=== PATIENT | male | born 1975 | race Two or more races ===

== ENCOUNTER → 2019-10-09 | Outpatient (CLI) | payer MEDICAID, OTHER | END | disposition home or self-care (01) | LOC: Rad HDHVI 14:59 | PROVIDERS: ATTEND Internal Medicine | DX: I07.1 Rheumatic tricuspid insufficiency (principal); I49.9 Cardiac arrhythmia, unspecified; R00.2 Palpitations; R07.9 Chest pain, unspecified | CPT/HCPCS: 93306 ==

== ENCOUNTER 2025-04-23 21:39 | Inpatient (IN) | payer MEDICAID ==
[~2025-04-23] VITALS: Ht 182.9 cm; Wt 110.2 kg
[2025-04-23 22:53] LABS: Hematocrit 41.5 % (41.0-53.0); Hemoglobin 13.7 g/dL (13.5-17.5); Mean Corpuscular Hemoglobin 29.0 pg (28.0-32.0); Mean Corpuscular Volume 87.6 fL (80.0-100.0); Nucleated Red Blood Cells % 0.1 %
--- NOTE | 2025-04-23 23:01 | DVH ---
CHEST RADIOGRAPH Indication: Suspected Sepsis Technique: Single frontal view of the chest was obtained Comparison: None FINDINGS: Lines and Tubes: None Lungs: No focal consolidation. Pleura: No effusion. No pneumothorax. Cardiomediastinal contours: Unremarkable Bones: No acute osseous abnormality. IMPRESSION: 1. No acute cardiopulmonary disease.
[2025-04-23 23:13] LABS: Alanine Aminotransferase 30 U/L (7-40); Albumin 4.5 g/dL (3.2-4.8); Alkaline Phosphatase 96 U/L (46-116); Anion Gap 10 (5-15); BUN/Creatinine Ratio 13.5 (10.0-20.0); Bilirubin, Total 0.5 mg/dL (0.2-1.0); Blood Urea Nitrogen 12 mg/dL (9-23); Calcium 9.8 mg/dL (8.7-10.4); Carbon Dioxide 25 mmol/L (20-31); Chloride 103 mmol/L (98-107); Glucose 203 mg/dL (74-106); Potassium 3.8 mmol/L (3.5-5.1); Sodium 138 mmol/L (136-145); Total Protein 6.9 g/dL (5.7-8.2)
[2025-04-24] VITALS (9 sets, daily range): BP systolic 114–140; BP diastolic 78–93; PULSE 81–93; RESP 12–18; TEMP 98.6–100.2; O2SAT 94–98
--- NOTE | 2025-04-24 01:31 | ED.PDOC ---
History of Present Illness HPI Comments 49-year-old male is brought in by ambulance from private residence for chief complaint of flu-like symptoms. Significant history of fibromyalgia, GERD, HTN, seizures, unspecified 'brain infection' in 2012. Per EMS report, symptoms include: Sternal chest, right back, RLQ, and kidney pain, generalized weakness, headache, room spinning dizziness, nausea, vomiting, fever, hot flashes, and chills. Symptoms are reported to have been ongoing following initial, unprovoked onset 4 days ago. Patient also mentions on having a tonic-clonic seizure episode at 0530, this morning, that was witnessed by his (last seizure was 1 year ago; he is on current seizure medications). He reports recen t trip to [place], [place]. On scene, vitals were noted to have been stable and within normal limits, with the exception of the patient being febrile, hypertensive, and tachycardic at a rate of 102. He had initial blood glucose of 234. Patient denies having any shortness of breath, urinary symptoms, bloody or bilious vomitus, diarrhea, further associated symptoms. Chief Complaint: General Weakness Time Seen by MD: 21:45 Reviewed Notes: Nurses Notes, Apprentice Instrument Technician Notes, Medications, Allergies Allergies: Coded Allergies: NO KNOWN ALLERGIES (Unverified , 04/23/25) Home Meds Reported Medications Metoprolol Succinate (Metoprolol Succinate Er) 25 Mg Tab, 1 TAB PO BID 04/24/25 Magnesium Oxide (Mag-Ox) 400 Mg Tb, 1 TAB PO 04/24/25 Pregabalin (Pregabalin) 200 Mg Cap, 1 CAP PO TID 04/24/25 Enalapril Maleate (Enalapril Maleate) 20 Mg Tab, 1 TAB PO BID 04/24/25 Information Source: Patient, Emergency Med Personnel Mode of Arrival: EMS Severity: Moderate Timing: Days Duration: Since onset Prehospital treatment: None Review of Systems: REVIEW OF SYSTEMS: Fever, hot flashes, chills or fatigue HEENT: No sore throat, no earache, no congestion, no neck pain. Cardiac: chest pain. No palpitations. Lungs: No shortness of breath, no cough. GI: RLQ abdominal pain. Nausea and vomiting, no diarrhea, no constipation : Kidney pain. No dysuria, frequency, or urgency. No hematuria. Musculoskeletal: Right back pain. No joint pain , no joint swelling, no extr emity edema. Skin: No rash, no itching. Neuro: Generalized weakness. headache, dizziness Vital Signs Vital Signs Date Time Temp Pulse Resp B/P (MAP) Pulse Ox O2 Delivery O2 Flow Rate FiO2 04/24/25 01:23 100 04/23/25 22:09 100.0 18 138/66 (90) 95 100.0 Physical Exam General: Awake, alert and oriented. No acute distress. Skin: Skin in warm and intact but diaphoretic. Appropriate color for ethnicity. HEENT: The head is normocephalic and atraumatic. Conjunctivae are clear without exudates or hemorrhage. Sclera is non-icteric. EOM are intact. No signs of nystagmus. Eyelids are normal in appearance without swelling or lesions. Oral mucosa is pink and moist. Neck is supple but was able to touch his chest with his chin. Neck: The neck is supple with normal range of motion. No JVD. Cardiac: Heart rate and rhythm are normal. No murmurs, gallops, or rubs are auscultated. Respiratory: No signs of respiratory distress. Lung sounds are clear in all lobes bilaterally without rales, rhonchi, or wheezes. Abdominal: RLQ in right flank tenderness. Otherwise, remaining abdomen is soft, non-tender without distention, guarding or rigidity. Bowel sounds are present and normoactive in all four quadrants. Extremities: Upper and lower extremities are atraumatic in appearance without deformity or edema. Neurological: The patient is awake, alert and oriented to person, place, and time with normal speech. Speech is clear. There is no facial asymmetry. Psychiatric: Appropriate mood and affect. Good judgement and insight. Past Medical History PAST MEDICAL HISTORY: GERD, HTN, Seizures Past Medical History (Other): Fibromyalgia Sepsis Unspecified 'brain infection' in 2013 Surgical History: Denies all surgeries Family History Family History: Unknown Social History Smoker: Non-Smoker Alcohol: Denies ETOH Use Drugs: Denies Drug Use Lives In: Home Was a procedure done? Was a procedure done?: No EKG EKG : Pulse Rate (adult): 100 [place]: Normal Cardiac Rhythm: ST Block: None Hypertrophy: None ST: Normal Differential Dx Considerations may include: Viral illness, pharyngitis, otitis media, bacteremia, pneumonia, UTI, meningitis, sepsis, acute ischemic coronary syndrome, aortic dissection, cardiac tamponade, mediastinitis, pulmonary embolus, pneumothorax, tension pneumothorax, esophageal rupture, coronary artery vasospasm, myocarditis, pericarditis, pneumonia, pulmonary edema, esophageal tear, pancreatitis, aortic stenosis, dilated cardiomyopathy, hypertrophic cardiomyopathy, mitral valve prolapse, malignancy, pleuritis, pneumomediastinum, primary pulmonary hypertension, cholecystitis, esophageal spasm, esophagus, gastritis, GERD, peptic ulcer disease, costochondritis, fibromyalgia, rib fracture, herpes zoster, radicular syndromes, thoracic outlet syndrome, somatization. X-Ray, Labs, Meds, VS Vital Signs Date Time Temp Pulse Resp B/P (MAP) Pulse Ox O2 Delivery O2 Flow Rate FiO2 04/24/25 01:23 100 04/23/25 22:09 100.0 103 18 138/66 (90) 95 100.0 Lab Test 04/24/25 01:40 04/24/25 01:32 04/23/25 23:45 04/23/25 22:19 Range/Units Troponin I High Sensitivity Pending < 3 L < 3 L </=54 ng/L Influenza Type A Antigen Pending Influenza Type B Antigen Pending SARS-CoV-2 Antigen (Rapid) Pending White Blood Count 7.3 4.4-10.8 10^3/uL Red Blood Count 4.74 4.5-5.90 10^6/uL Hemoglobin 13.7 13.5-17.5 g/dL Hematocrit 41.5 41.0-53.0 % Mean Corpuscular Volume 87.6 80.0-100.0 fL Mean Corpuscular Hemoglobin 29.0 28.0-32.0 pg Mean Corpuscular Hemoglobin Concent 33.0 32.0-36.0 g/dL Red Cell Distribution Width 14.2 11.8-14.3 % Platelet Count 159 140-450 10^3/uL Mean Platelet Volume 7.9 6.9-10.8 fL Neutrophils (%) (Auto) 76.0 37.0-80.0 % Lymphocytes (%) (Auto) 11.8 10.0-50.0 % Monocytes (%) (Auto) 10.9 0.0-12.0 % Eosinophils (%) (Auto) 0.6 0.0-7.0 % Basophils (%) (Auto) 0.7 0.0-2.0 % Neutrophils # (Auto) 5.5 1.6-8.6 10 ^3/uL Lymphocytes # (Auto) 0.9 0.4-5.4 10 ^3/uL Monocytes # (Auto) 0.8 0-1.3 10 ^3/uL Eosinophils # (Auto) 0 0-0.8 10 ^3/uL Basophils # (Auto) 0 0-0.2 10 ^3/uL Nucleated Red Blood Cells 0.1 % Sodium Level 138 136-145 mmol/L Potassium Level 3.8 3.5-5.1 mmol/L Chloride Level 103 98-107 mmol/L Carbon Dioxide Level 25 20-31 mmol/L Anion Gap 10 5-15 Blood Urea Nitrogen 12 9-23 mg/dL Creatinine 0.89 0.700-1.30 mg/dL Glomerular Filtration Rate Calc 104 >90 mL/min BUN/Creatinine Ratio 13.5 10.0-20.0 Serum Glucose 203 H 74-106 mg/dL Lactic Acid Level 1.9 0.4-2.0 mmol/L Calcium Level 9.8 8.7-10.4 mg/dL Total Bilirubin 0.5 0.2-1.0 mg/dL Aspartate Amino Transferase (AST) 26 13-40 U/L Alanine Aminotransferase (ALT) 30 7-40 U/L Alkaline Phosphatase 96 46-116 U/L Total Protein 6.9 5.7-8.2 g/dL Albumin 4.5 3.2-4.8 g/dL Plasma/Serum Blood Alcohol 3.7 <10 mg/dL Test 04/23/25 21:50 Range/Units Urine Color Yellow Yellow Urine Clarity Clear Clear Urine pH 6.0 5.0-9.0 Urine Specific [place] 1.049 H 1.001-1.035 Urine Protein 1+ H Negative Urine Ketones Trace Negative Urine Blood Negative Negative /uL Urine Nitrite Negative Negative Urine Bilirubin Negative Negative Urine Urobilinogen Normal Negative mg/dL Urine Leukocyte Esterase Negative Negative /uL Urine RBC 2 0 - 3 /hpf Urine Microscopic WBC 1 0-3 /HPF Urine Squamous Epithelial Cells None seen <5 /hpf Urine Bacteria None seen None Seen /hpf Urine Mucus Few None Seen Urine Glucose 3+ H Normal mg/dL [facility] [address] [facility] [address] Ph: [phone] DIAGNOSTIC IMAGING Diagnostic Imaging Report : [id number] Signed PATIENT: MARY GERARDO ACCT: [id number] UNIT: [id number] : 1975 LOC: ER ROOM / BED: / AGE / SEX: 49 / M ADM STATUS: REG ER SERVICE 49 ORDERING PHYSICIAN: STANTON BORGES MD PROCEDURE(s): CXR1 - CHEST XRAY 1 VIEW REASON: Suspected Sepsis ORDER NUMBER(s): [id number], ACCESSION NUMBER(s): [id number] CHEST RADIOGRAPH Indication: Suspected Sepsis Technique: Single frontal view of the chest was obtained Comparison: None FINDINGS: Lines and Tubes: None Lungs: No focal consolidation. Pleura: No effusion. No pneumothorax. Cardiomediastinal contours: Unremarkable Bones: No acute osseous abnormality. IMPRESSION: 1. No acute cardiopulmonary disease. ATED BY: CHRISTY NGUYEN MD DICTATED DATE/TIME: 04/23/252258 SIGNED BY: CHRISTY NGUYEN MD SIGNED DATE/TIME: 04/23/252258 CC: Time of 1ST Reevaluation: 22:15 Reevaluation 1ST: Unchanged Patient Education/Counseling: Treatment, Need For Follow Up Family Education/Counseling: No Family Present SEPSIS Sepsis Screen Date sepsis recognized/suspect: Apr 23, 2025 Time Sepsis recognized/suspect: 2210 Recent Procedure: No On Antibiotic Therapy: No Respiratory Rate >20: No Heart Rate >90: Yes Temp<36 C (96.8 F) or >38.3 C: No SBP <90 or MAP <65 mmHG: No New Acute Mental Status Change: No Is the patient on CPAP, BIPAP,: No Physician Orders Chest Xray 1 View (04/23/25 21:50) Blood Culture (04/23/25 21:50) Urine Bacterial Culture (04/23/25 21:50) Seizure Precautions (04/23/25 ) Troponin-I Hs (04/24/25 00:50) Electrocardigram (04/23/25 21:50) Electrocardigram (04/23/25 22:50) Electrocardigram (04/24/25 00:50) Drug Screen (04/23/25 21:50) Notify Md If Abnormal Vs (04/23/25 22:01) Vital Signs UPONDC (04/24/25 23:36) Notify Md If Abnormal Vs (04/24/25 00:55) Covid19 Antigen Leilani (04/24/25 ) Rapid Influenza A&B (04/24/25 01:27) Vital Signs Date Time Temp Pulse Resp B/P (MAP) Pulse Ox O2 Delivery O2 Flow Rate FiO2 04/24/25 01:23 100 04/23/25 22:09 100.0 103 18 138/66 (90) 95 100.0 Laboratory Tests Test 04/23/25 22:19 Lactic Acid Level 1.9 mmol/L (0.4-2.0) White Blood Count 7.3 10^3/uL (4.4-10.8) Departure 1 Departure Time of Disposition: 01:31 Impression: Primary Impression: Dizziness Additional Impressions: Seizure Generalized weakness Hyperglycemia COVID-19 Disposition: ADMITTED INPATIENT Condition: Stable Comments Patient admitted to hospitalist service for further treatment, evaluation and monitoring. Extensive evaluation was performed in attempt to identify or rule out: (See differential diagnosis section) The following tests were ordered, and results were reviewed by me and discussed with patient: (See diagnostic results section) The following test were independently interpreted by me: EKG I reviewed and agreed with the following test results read by other providers: Chest x-ray I reviewed the following notes from the pt's past medical encounters: N/A Additional information was gathered from interviewing the following independent historians: EMS personnel Discussion of management or test interpretation with external physician/other qualified health post acute care nurse: N/A Decision regarding hospitalization or escalation of hospital level of care: Risk and benefits of admission for further treatment of patient's condition was considered. Due to patient's current clinical condition, high risk of decline and poor outcome if discharged and need for further inpatient management and monitoring, patient will be admitted to the hospital. Critical Care Note Critical Care Time?: No Stability Stability form required: No Heart Score Heart Score: Heart Score Response (Comments) Value History N/A 0 EKG N/A 0 Age N/A 0 Risk Factors N/A 0 Troponin N/A 0 Total 0 I personally scribed for STANTON BORGES MD ([email or web address]) on 04/24/25 at 01:31. Electronically submitted by Roque Plaza ([email or web address]). I personally scribed for STANTON BORGES MD ([email or web address]) on 04/24/25 at 01:57. Electronically submitted by Roque Plaza ([email or web address]). STANTON BORGES MD Apr 24, 2025 01:31
[2025-04-24 01:43] LABS: Urine Protein, UAD 1+ (Negative)
[2025-04-24 02:47] LABS: COVID19 ANTIGEN SOFIA FIA POSITIVE (NEGATIVE)
[2025-04-24] MEDS ORDERED: ALBUTEROL SULF HFA 90MCG INH 200DOSE IN PRN ×2 (04:30→04:45)
[2025-04-24] MEDS ORDERED: ONDANSETRON HCL 4 MG/2 ML VIAL IV PRN (04:30)
[2025-04-24] MEDS ORDERED: guaiFENesin-DM 100/10mg/5ml SYR PO PRN ×2 (04:30→04:45)
[2025-04-24] MEDS ORDERED: ACETAMINOPHEN 500 MG TAB or CAP PO PRN ×2 (04:30→04:45)
[2025-04-24] MEDS ORDERED: LORazepam 2MG/ML-1ML VIAL IV PRN ×2 (04:30→04:45)
[2025-04-24] MEDS ORDERED: SODIUM CHLORIDE 0.9% 500 ML IV ONE (04:30)
--- NOTE | 2025-04-24 04:33 | DVHHP2 ---
History of Present Illness Reason for Visit: Flu-like symptoms History of Present Illness 49-year-old male presents for evaluation of flu-like symptoms. Patient reports a four day history of generalized weakness with associated headache, fever, nausea. He also reports having a tonic-clonic seizure yesterday morning. Denies head trauma or oral trauma. Patient reports being compliant with his antiseizure medications. No other acute complaints reported. Past Medical History Fibromyalgia, hypertension, seizures, diabetes mellitus Family History Noncontributory Smoke: No ALCOHOL: none Drugs: None Lives: with Family Review of Systems Review of Systems Review of systems are currently negative otherwise addressed in HPI. Allergies: Coded Allergies: NO KNOWN ALLERGIES (Unverified , 04/23/25) Exam Vital Signs Vital Signs Date Time Temp Pulse Resp B/P (MAP) Pulse Ox O2 Delivery O2 Flow Rate FiO2 04/24/25 04:00 93 04/24/25 02:09 98.6 14 138/83 (101) 96 98.6 Exam Gen: 49-year-old male in mild distress. Skin: Warm, dry, normal color and texture, no rash. HEENT: Normocephalic atraumatic, mucous membranes moist and pink. Neck: Cervical and supraclavicular nodes normal without enlargement, trachea is midline, thyroid gland is normal without masses. Pulmonary: Clear to auscultation and percussion bilaterally. Cardiac: Regular rate and rhythm. No murmur Abdomen: Soft, nontender, nondistended, bowel sounds present all 4 quadrants, no guarding, no rigidity, no organomegaly. Extremities: No cyanosis, clubbing, no edema Neuro: Cranial nerves II through XII grossly intact, normal affect and speech, no focal motor deficits. Labs/Xrays ORDERING PHYSICIAN: STANTON BORGES MD PROCEDURE(s): CXR1 - CHEST XRAY 1 VIEW REASON: Suspected Sepsis ORDER NUMBER(s): [id number], ACCESSION NUMBER(s): [id number] CHEST RADIOGRAPH Indication: Suspected Sepsis Technique: Single frontal view of the chest was obtained Comparison: None FINDINGS: Lines and Tubes: None Lungs: No focal consolidation. Pleura: No effusion. No pneumothorax. Cardiomediastinal contours: Unremarkable Bones: No acute osseous abnormality. IMPRESSION: 1. No acute cardiopulmonary disease. Labs Test 04/24/25 01:40 04/24/25 01:32 04/23/25 22:19 04/23/25 21:50 Range/Units Troponin I High Sensitivity < 3 L </=54 ng/L Influenza Type A Antigen Negative Negative Influenza Type B Antigen Negative Negative SARS-CoV-2 Antigen (Rapid) Positive *A NEGATIVE White Blood Count 7.3 4.4-10.8 10^3/uL Red Blood Count 4.74 4.5-5.90 10^6/uL Hemoglobin 13.7 13.5-17.5 g/dL Hematocrit 41.5 41.0-53.0 % Mean Corpuscular Volume 87.6 80.0-100.0 fL Mean Corpuscular Hemoglobin 29.0 28.0-32.0 pg Mean Corpuscular Hemoglobin Concent 33.0 32.0-36.0 g/dL Red Cell Distribution Width 14.2 11.8-14.3 % Platelet Count 159 140-450 10^3/uL Mean Platelet Volume 7.9 6.9-10.8 fL Neutrophils (%) (Auto) 76.0 37.0-80.0 % Lymphocytes (%) (Auto) 11.8 10.0-50.0 % Monocytes (%) (Auto) 10.9 0.0-12.0 % Eosinophils (%) (Auto) 0.6 0.0-7.0 % Basophils (%) (Auto) 0.7 0.0-2.0 % Neutrophils # (Auto) 5.5 1.6-8.6 10 ^3/uL Lymphocytes # (Auto) 0.9 0.4-5.4 10 ^3/uL Monocytes # (Auto) 0.8 0-1.3 10 ^3/uL Eosinophils # (Auto) 0 0-0.8 10 ^3/uL Basophils # (Auto) 0 0-0.2 10 ^3/uL Nucleated Red Blood Cells 0.1 % Sodium Level 138 136-145 mmol/L Potassium Level 3.8 3.5-5.1 mmol/L Chloride Level 103 98-107 mmol/L Carbon Dioxide Level 25 20-31 mmol/L Anion Gap 10 5-15 Blood Urea Nitrogen 12 9-23 mg/dL Creatinine 0.89 0.700-1.30 mg/dL Glomerular Filtration Rate Calc 104 >90 mL/min BUN/Creatinine Ratio 13.5 10.0-20.0 Serum Glucose 203 H 74-106 mg/dL Lactic Acid Level 1.9 0.4-2.0 mmol/L Calcium Level 9.8 8.7-10.4 mg/dL Total Bilirubin 0.5 0.2-1.0 mg/dL Aspartate Amino Transferase (AST) 26 13-40 U/L Alanine Aminotransferase (ALT) 30 7-40 U/L Alkaline Phosphatase 96 46-116 U/L Total Protein 6.9 5.7-8.2 g/dL Albumin 4.5 3.2-4.8 g/dL Plasma/Serum Blood Alcohol 3.7 <10 mg/dL Urine Color Yellow Yellow Urine Clarity Clear Clear Urine pH 6.0 5.0-9.0 Urine Specific [place] 1.049 H 1.001-1.035 Urine Protein 1+ H Negative Urine Ketones Trace Negative Urine Blood Negative Negative /uL Urine Nitrite Negative Negative Urine Bilirubin Negative Negative Urine Urobilinogen Normal Negative mg/dL Urine Leukocyte Esterase Negative Negative /uL Urine RBC 2 0 - 3 /hpf Urine Microscopic WBC 1 0-3 /HPF Urine Squamous Epithelial Cells None seen <5 /hpf Urine Bacteria None seen None Seen /hpf Urine Mucus Few None Seen Urine Glucose 3+ H Normal mg/dL Assessment/Plan Assessment/Plan Assessment Viral syndrome COVID positive Seizure activity Hypertension Diabetes mellitus Plan Admit the patient to Med surge to the hospitalist COVID-19 protocol Resume home medications Continue treatment per orders. Plan discussed with: Patient My Orders Orders - GHADA JOHNSON AGACNP Procedure Category Date Status Time Isolation Order ORDERS 04/24/25 Transmitted 04:21 Precautions RIK 04/24/25 Transmitted (Contact,Droplets, 04:21 C-Reactive Protein LAB 04/24/25 Transmitted 04:21 D-Dimer LAB 04/24/25 Transmitted 04:21 Ferritin LAB 04/24/25 Transmitted 04:21 Thyroid Stimulating LAB 04/24/25 Transmitted Hormone 04:21 Complete Blood Count LAB 04/25/25 Verified 05:30 Comprehensive LAB 04/25/25 Verified Metabolic Panel 05:30 Complete Blood Count LAB 04/28/25 Verified 05:30 Comprehensive LAB 04/28/25 Verified Metabolic Panel 05:30 Lactate Dehydrogenase LAB 04/28/25 Verified 05:30 Ferritin LAB 04/28/25 Verified 05:30 Chest Portable XY 04/25/25 Logged 07:00 Chest Portable XY 04/28/25 Logged 07:00 Tylenol 1000 Mg PHA 04/24/25 Transmitted 04:30 Zinc 220 Mg Po Daily PHA 04/24/25 Transmitted 10:00 Albuterol Inh PHA 04/24/25 Transmitted (Covid-19) 90mcg 04:30 Oob To Chair RIK 04/24/25 Transmitted 04:21 Incentive Spirometry ORDERS 04/24/25 Transmitted Q 1hr 04:21 Magnesium LAB 04/24/25 Transmitted 04:21 Emergency Operator ORDERS 04/24/25 Transmitted 04:21 C-Reactive Protein LAB 04/28/25 Verified 04:21 Hemoglobin A1c LAB 04/24/25 Transmitted 04:21 Lovenox 40mg Daily PHA 04/24/25 Transmitted 10:00 Guaifenesin-Dextromet PHA 04/24/25 Transmitted Liquid (Robitussin 04:30 Enalapril Tablet PHA 04/24/25 Transmitted (Vasotec Tablet) 10:00 Metoprolol Xl PHA 04/24/25 Transmitted Succinate (Toprol Xl) 10:00 Pregabalin Capsule PHA 04/24/25 Transmitted (Lyrica Capsule) 10:00 Admit ADMIT 04/24/25 Transmitted 04:21 Ondansetron Hcl PHA 04/24/25 Transmitted (Zofran) 04:30 Cardiac DIET 04/24/25 Transmitted Diet-2gna,Lofat,Lochol Breakfast Condition: Stable [facility] 04/24/25 Transmitted 04:21 Bedrest With Bathroom RIK 04/24/25 Transmitted Privileg 04:21 Seizure Precautions [facility] 04/24/[address] 04:21 Lorazepam 2mg/Ml Inj PHA 04/24/25 Transmitted (Ativan Inj) 04:30 Date of Service: Apr 24, 2025 Billing Provider: GHADA JOHNSON Common Visit Codes: [id number] INP/OBS CARE (HIGH) GHADA JOHNSON Apr 24, 2025 04:33
[2025-04-24] MEDS ORDERED: DEXTROSE (50%) 50ML SYRG IV PRN (04:45)
[2025-04-24] MEDS: SODIUM CHLORIDE 0.9% 1,000 ML IV ONE (04:50)
[2025-04-24] MEDS: ACETAMINOPHEN 325 MG TAB PO ONE (04:50)
[2025-04-24] MEDS: SODIUM CHLORIDE 0.9% 500 ML IV ONE (04:51)
[2025-04-24 05:28] LABS: Opiate Scree,Urine Neg (NEGATIVE)
[2025-04-24 05:55] LABS: Phencyclidine Screen, Urine Neg (NEGATIVE)
[2025-04-24 05:56] LABS: Amphetamine Screen, Urine Neg (NEGATIVE); Barbiturate Scree,Urine Neg (NEGATIVE); Benzodiazephine Screen, Urine Neg (NEGATIVE); Cannabinoid Screen, Urine Neg (NEGATIVE); Cocaine Screen, Urine Neg (NEGATIVE)
[2025-04-24 06:35] LABS: Magnesium 1.9 mg/dL (1.6-2.6)
[2025-04-24] MEDS: ACCU-CHEK COMFORT CURVE STRIP VI SCH (06:36)
[2025-04-24] MEDS: InsuLIN REG 1unit/0.01ml Soln (100units/ml) SC SCH ×2 (06:37→11:59)
[2025-04-24] MEDS: InsuLIN REG 1unit/0.01ml Soln (100units/ml) ONE (06:38)
[2025-04-24] MEDS: PREGABALIN CAPSULE 75 MG CAP PO SCH (09:55)
[2025-04-24] MEDS: ZINC SULFATE 220mg CAP or TAB PO SCH (09:55)
[2025-04-24] MEDS: METOPROLOL SUCCINATE XL 50 MG TAB PO SCH (09:55)
[2025-04-24] MEDS: ENALAPRIL MALEATE 10 MG TAB PO SCH (09:56)
[2025-04-24] MEDS: ENOXAPARIN SOD 40 MG/0.4 ML SYRINGE SC SCH (09:56)
--- NOTE | 2025-04-24 09:57 | ECG ---
[facility] Test Date: 2025-04-24 Test Time: 01:23:08 Pat Name: MARY GERARDO Department: ED Room: 0202 Gender: M Force Variation Equipment Tender: FRANCESCA : 1975 Requested By: STANTON BORGES Order Number: [id number] Reading MD: Demarco White Measurements Intervals [place] Rate: 100 P: 66 NC: 124 QRS: 30 QRSD: 93 T: 13 QT: 331 QTc: 427 Interpretive Statements Sinus tachycardia Electronically Signed On 04-26-2025 18:59:57 PDT by Demarco White Please click the below link to view image of tracing.
[2025-04-24] MEDS ORDERED: ENALAPRIL MALEATE 10 MG TAB PO SCH (10:00)
[2025-04-24] MEDS ORDERED: ZINC SULFATE 220mg CAP or TAB PO SCH (10:00)
[2025-04-24] MEDS ORDERED: METOPROLOL SUCCINATE XL 50 MG TAB PO SCH (10:00)
[2025-04-24] MEDS ORDERED: PREGABALIN CAPSULE 75 MG CAP PO SCH (10:00)
[2025-04-24] MEDS ORDERED: ENOXAPARIN SOD 40 MG/0.4 ML SYRINGE SC SCH (10:00)
[2025-04-24] MEDS ORDERED: METO25TA93 PO (14:59)
[2025-04-24] MEDS ORDERED: PREG200C36 PO (14:59)
[2025-04-24] MEDS ORDERED: MAGN241.4 PO (14:59)
[2025-04-24] MEDS ORDERED: ENAL1TAB48 PO (14:59)
--- NOTE | 2025-04-24 15:50 | DVHPN2 ---
Subjective Patient continues to report having 10/10 headache Reviewed: Care Plan, H&P, Labs, Medications, Previous Orders Changes from previous H/P or p: No Changes General: Per HPI Objective Vitals Vital Signs Date Time Temp Pulse Resp B/P (MAP) Pulse Ox O2 Delivery O2 Flow Rate FiO2 04/24/25 14:32 98.6 82 18 140/89 (106) 98 98.6 04/24/25 07:59 Room Air* 0 21 Intake/Output Intake and Output 04/24/25 07:00 Intake Total 1000 ml Balance 1000 ml Intake IV Total 1000 ml General Appearance: Alert, Oriented X3, Cooperative, mild distress HEENT: Atraumatic, PERRLA Cardiovascular: Normal S1, Normal S2 Abdomen: Normal bowel sounds, Soft, No tenderness, No hepatospenomegaly, No masses Genitourinary: No Apparent Abnormalities Musculoskeletal: Normal sensory function, Normal motor function Skin: Dry, Intact Psych/Mental Status: Mental status NL, Mood NL Medications Current Medications Medications Dose Ordered Sig/Pastora Route Start Time Stop Time Status Last Admin Dose Admin Diagnostic Test (Pha) 1 strip ACHS 04/24/25 07:00 04/24/25 11:42 1 STRIP Dextrose 50 ml UD PRN IV 04/24/25 04:45 Albuterol 90 mcg TIDPRN PRN IN 04/24/25 04:45 Enoxaparin Sodium 40 mg DAILY SC 04/24/25 10:00 04/24/25 09:56 40 MG Ondansetron HCl 4 mg Q4HP PRN IV 04/24/25 04:45 Lorazepam 1 mg Q5MINP PRN IV 04/24/25 04:45 Acetaminophen 1,000 mg Q8HP PRN PO 04/24/25 04:45 Zinc Sulfate 220 mg DAILY PO 04/24/25 10:00 04/24/25 09:55 220 MG Guaifenesin/ Dextromethorphan 10 ml Q4HP PRN PO 04/24/25 04:45 Enalapril Maleate 20 mg Q12HR PO 04/24/25 10:00 04/24/25 09:56 20 MG Metoprolol Succinate 25 mg DAILY PO 04/24/25 10:00 04/24/25 09:55 25 MG Pregabalin 150 mg BID PO 04/24/25 10:00 04/24/25 09:55 150 MG Insulin Human Regular ACHS SC 04/24/25 11:53 04/24/25 11:59 2 UNITS Ascorbic Acid 500 mg BID PO 04/24/25 22:00 UNV Cholecalciferol 2,000 unit DAILY PO 04/25/25 10:00 UNV Zinc Sulfate 220 mg DAILY PO 04/25/25 10:00 UNV Dexamethasone 6 mg DAILY PO 04/24/25 15:15 UNV Morphine Sulfate 1 mg Q4HPRN PRN IV 04/24/25 15:30 UNV Acetaminophen/ Hydrocodone Bitart 1 tab Q6HPRN PRN PO 04/24/25 15:30 UNV Laboratory Results Laboratory Tests 04/23/25 22:19 Chemistry Test 04/23/25 22:19 04/24/25 05:05 Albumin 4.5 g/dL (3.2-4.8) Calcium Level 9.8 mg/dL (8.7-10.4) Total Protein 6.9 g/dL (5.7-8.2) Magnesium Level 1.9 mg/dL (1.6-2.6) Coagulation Test 04/24/25 05:05 D-Dimer, Quantitative < 0.19 mg/L FEU (0.0-0.49) LFT Test 04/23/25 22:19 Alanine Aminotransferase (ALT) 30 U/L (7-40) Alkaline Phosphatase 96 U/L (46-116) Aspartate Amino Transferase (AST) 26 U/L (13-40) Total Bilirubin 0.5 mg/dL (0.2-1.0) HgA1c, TSH Test 04/24/25 05:05 Hemoglobin A1c 8.1 % A1C (<5.7) H Thyroid Stimulating Hormone (TSH) 0.30 uIU/mL (0.55-4.78) L Urinalysis Test 04/23/25 21:50 Urine Color Yellow (Yellow) Urine Clarity Clear (Clear) Urine pH 6.0 (5.0-9.0) Urine Specific [place] 1.049 (1.001-1.035) Urine Protein 1+ (Negative) H Urine Ketones Trace (Negative) Urine Blood Negative /uL (Negative) Urine Nitrite Negative (Negative) Urine Bilirubin Negative (Negative) Urine Urobilinogen Normal mg/dL (Negative) Urine Leukocyte Esterase Negative /uL (Negative) Urine RBC 2 /hpf (0 - 3) Urine Microscopic WBC 1 /HPF (0-3) Urine Squamous Epithelial Cells None seen /hpf (<5) Urine Bacteria None seen /hpf (None Seen) Urine Mucus Few (None Seen) Urine Glucose 3+ mg/dL (Normal) H Labs and/or images reviewed: Labs reviewed by me, Image(s) reviewed by me Assessment/Plan Assessment/Plan Impression: -COVID-19 -obesity -fibromyalgia -seizure disorder -primary hypertension -diabetes mellitus Plan: -start zinc, vitamin-C, vitamin-D supplementation -Decadron 6 mg p.o. daily -pain management -continue home medications with Lyrica -regular insulin sliding scale -continue home antihypertensives -reassess in a.m. for possible discharge Total time spent with patient discussing and formulating plan of care: 35 minutes. This medical document was created using an electronic medical record system with [employer] dictation system. Although this document has been carefully reviewed, there may still be some phonetic and typographical errors. These areas are purely typographical due to imperfections of the software programs, and do not reflect any compromise in the patient's medical care. Plan discussed with: Patient, Other (RN) My Orders Orders - MAYTE METZGER NP Procedure Category Date Status Time Ascorbic Acid Tablet PHA 04/24/25 Logged (Vitamin C Tablet) 22:00 Cholecalciferol PHA 04/25/25 Logged Tablet (Vitamin D3 10:00 Zinc Sulfate PHA 04/25/25 Logged 10:00 Dexamethasone Tablet PHA 04/24/25 Logged (Decadron Tablet) 15:15 Morphine Sulfate PHA 04/24/25 Logged Injection 15:30 Hydrocodone-Acet PHA 04/24/25 Logged 5/325mg Tab ([place] 15:30 Date of Service: Apr 24, 2025 Billing Provider: MAYTE METZGER NP Common Visit Codes: [id number] INP/OBS CARE(HIGH) MAYTE METZGER NP Apr 24, 2025 15:50
[2025-04-24] MEDS: HYDROcodone-ACET 5/325MG TAB PO PRN (17:00)
[2025-04-24] MEDS: ONDANSETRON HCL 4 MG/2 ML VIAL IV PRN (19:54)
[2025-04-24] MEDS: MORPHINE SULFATE INJ 2 MG/ml SYRG IV PRN (20:07)
[2025-04-24] MEDS: ASCORBIC ACID 500 MG TAB PO SCH (22:52)
[2025-04-25] VITALS (7 sets, daily range): BP systolic 112–120; BP diastolic 76–85; PULSE 75–86; RESP 16–18; TEMP 97.7–98.7; O2SAT 94–98
--- NOTE | 2025-04-25 06:39 | DVH ---
CHEST RADIOGRAPH Indication: Covid-19 pneumonia Technique: Single frontal view of the chest was obtained COMPARISON: XY CHEST XRAY 1 VIEW on DOS: 04/23/25 FINDINGS: Lines and Tubes: None Lungs: Clear. Diminished lung volumes. Pleura: No effusion. No pneumothorax. Cardiomediastinal contours: Unremarkable Bones: Unremarkable IMPRESSION: 1. No acute disease.
[2025-04-25 08:47] LABS: Hematocrit 41.7 % (41.0-53.0); Hemoglobin 14.2 g/dL (13.5-17.5); Mean Corpuscular Hemoglobin 29.6 pg (28.0-32.0); Mean Corpuscular Volume 87.0 fL (80.0-100.0); Nucleated Red Blood Cells % 0.1 %
[2025-04-25] MEDS: CHOLECALCIFEROL (VITD3) 1,000UNIT=25mCg TAB PO SCH (08:52)
[2025-04-25] MEDS: ZINC SULFATE 220mg CAP or TAB PO SCH (08:56)
[2025-04-25 09:03] LABS: Alanine Aminotransferase 27 U/L (7-40); Albumin 4.5 g/dL (3.2-4.8); Alkaline Phosphatase 88 U/L (46-116); Anion Gap 10 (5-15); BUN/Creatinine Ratio 15.1 (10.0-20.0); Blood Urea Nitrogen 11 mg/dL (9-23); Calcium 10.2 mg/dL (8.7-10.4); Carbon Dioxide 28 mmol/L (20-31); Chloride 101 mmol/L (98-107); Potassium 4.2 mmol/L (3.5-5.1); Sodium 139 mmol/L (136-145); Total Protein 6.9 g/dL (5.7-8.2)
[2025-04-25 09:04] LABS: Bilirubin, Total 0.5 mg/dL (0.2-1.0)
[2025-04-25 09:06] LABS: Glucose 147 mg/dL (74-106)
[2025-04-25] MEDS ORDERED: METF-370 PO (14:12)
[2025-04-25] MEDS ORDERED: CHOL20007 PO (14:12)
[2025-04-25] MEDS ORDERED: ZINC220C10 PO (14:12)
[2025-04-25] MEDS ORDERED: DEX4T PO (14:12)
[2025-04-25] MEDS ORDERED: ASCO500T11 PO (14:12)
--- NOTE | 2025-04-25 14:14 | DVHDS2 ---
Discharge Summary Date of Admission Apr 24, 2025 at 04:21 Date of Discharge: Apr 25, 2025 Admitting Diagnosis COVID-19 with breakthrough seizure activity Labs/Diagnostic Data: Laboratory Results Test 04/25/25 11:32 04/25/25 07:50 04/24/25 05:05 04/24/25 01:40 POC Glucose 210 mg/dl (70-106) White Blood Count 5.8 10^3/uL (4.4-10.8) Red Blood Count 4.79 10^6/uL (4.5-5.90) Hemoglobin 14.2 g/dL (13.5-17.5) Hematocrit 41.7 % (41.0-53.0) Mean Corpuscular Volume 87.0 fL (80.0-100.0) Mean Corpuscular Hemoglobin 29.6 pg (28.0-32.0) Mean Corpuscular Hemoglobin Concent 34.0 g/dL (32.0-36.0) Red Cell Distribution Width 14.1 % (11.8-14.3) Platelet Count 177 10^3/uL (140-450) Mean Platelet Volume 8.2 fL (6.9-10.8) Neutrophils (%) (Auto) 64.4 % (37.0-80.0) Lymphocytes (%) (Auto) 25.5 % (10.0-50.0) Monocytes (%) (Auto) 9.6 % (0.0-12.0) Eosinophils (%) (Auto) 0.1 % (0.0-7.0) Basophils (%) (Auto) 0.4 % (0.0-2.0) Neutrophils # (Auto) 3.7 10 ^3/uL (1.6-8.6) Lymphocytes # (Auto) 1.5 10 ^3/uL (0.4-5.4) Monocytes # (Auto) 0.6 10 ^3/uL (0-1.3) Eosinophils # (Auto) 0 10 ^3/uL (0-0.8) Basophils # (Auto) 0 10 ^3/uL (0-0.2) Nucleated Red Blood Cells 0.1 % Sodium Level 139 mmol/L (136-145) Potassium Level 4.2 mmol/L (3.5-5.1) Chloride Level 101 mmol/L (98-107) Carbon Dioxide Level 28 mmol/L (20-31) Anion Gap 10 (5-15) Blood Urea Nitrogen 11 mg/dL (9-23) Creatinine 0.73 mg/dL (0.700-1.30) Glomerular Filtration Rate Calc 110 mL/min (>90) BUN/Creatinine Ratio 15.1 (10.0-20.0) Serum Glucose 147 mg/dL (74-106) Calcium Level 10.2 mg/dL (8.7-10.4) Total Bilirubin 0.5 mg/dL (0.2-1.0) Aspartate Amino Transferase (AST) 23 U/L (13-40) Alanine Aminotransferase (ALT) 27 U/L (7-40) Alkaline Phosphatase 88 U/L (46-116) Total Protein 6.9 g/dL (5.7-8.2) Albumin 4.5 g/dL (3.2-4.8) D-Dimer, Quantitative < 0.19 mg/L FEU (0.0-0.49) Hemoglobin A1c 8.1 % A1C (<5.7) Magnesium Level 1.9 mg/dL (1.6-2.6) Ferritin 42.4 ng/mL (22-322) C-Reactive Protein High Sensitivity 4.94 mg/dL (<1.0) Thyroid Stimulating Hormone (TSH) 0.30 uIU/mL (0.55-4.78) Troponin I High Sensitivity < 3 ng/L (</=54) Test 04/24/25 01:32 04/23/25 22:19 04/23/25 21:50 Influenza Type A Antigen Negative (Negative) Influenza Type B Antigen Negative (Negative) SARS-CoV-2 Antigen (Rapid) Positive (NEGATIVE) Lactic Acid Level 1.9 mmol/L (0.4-2.0) Plasma/Serum Blood Alcohol 3.7 mg/dL (<10) Urine Color Yellow (Yellow) Urine Clarity Clear (Clear) Urine pH 6.0 (5.0-9.0) Urine Specific [place] 1.049 (1.001-1.035) Urine Protein 1+ (Negative) Urine Ketones Trace (Negative) Urine Blood Negative /uL (Negative) Urine Nitrite Negative (Negative) Urine Bilirubin Negative (Negative) Urine Urobilinogen Normal mg/dL (Negative) Urine Leukocyte Esterase Negative /uL (Negative) Urine RBC 2 /hpf (0 - 3) Urine Microscopic WBC 1 /HPF (0-3) Urine Squamous Epithelial Cells None seen /hpf (<5) Urine Bacteria None seen /hpf (None Seen) Urine Mucus Few (None Seen) Urine Glucose 3+ mg/dL (Normal) Urine Opiates Screen Neg (NEGATIVE) Urine Fentanyl Screen Neg (NEGATIVE) Urine Barbiturates Screen Neg (NEGATIVE) Urine Phencyclidine Screen Neg (NEGATIVE) Urine Amphetamines Screen Neg (NEGATIVE) Urine Benzodiazepines Screen Neg (NEGATIVE) Urine Cocaine Screen Neg (NEGATIVE) Urine Cannabinoids Screen Neg (NEGATIVE) Other Laboratory Tests 04/25/25 07:50 Brief Hx & Hospital Course: History of Present Illness 49-year-old male presents for evaluation of flu-like symptoms. Patient reports a four day history of generalized weakness with associated headache, fever, nausea. He also reports having a tonic-clonic seizure yesterday morning. Denies head trauma or oral trauma. Patient reports being compliant with his antiseizure medications. No other acute complaints reported. Course of hospitalization: Patient was started on zinc, vitamin-C, vitamin-D, as well as Decadron 6 mg IV daily. Patient was started on regular insulin sliding scale. Patient's symptoms resolved overnight. Patient has been without any seizure activity. Patient is requesting to be discharged home. Hemoglobin A1c with the patient was found to be 8.1. Patient reports that his blood sugars have been out of control at home as currently out of any medications for his diabetes. Patient will be continued on zinc, vitamin-C, vitamin-D as well as Decadron 4 mg p.o. daily times four days. Patient will also have a prescription for metformin 500 mg p.o. b.i.d. refilled. He is instructed to follow up with his PCP in 1-2 weeks. All questions answered. Physical examination General: Alert and Oriented x3. No acute distress. Well-nourished. Eyes: EOMI. Anicteric. HENT: Moist mucous membranes. Lungs: Clear to auscultation bilaterally. No accessory muscle use. Cardiovascular: Regular rate and rhythm. No murmur. No JVD. Abdomen: Soft, non-tender and non-distended. No palpable masses. Extremities: No edema. Non-tender. Skin: No rashes or lesions. Warm. Neurologic: No focal neurological deficits. CN II-XII grossly intact, but not individually tested. Psychiatric: Cooperative. Appropriate mood and affect. Total time spent with patient discussing and formulating plan of care: 35 minutes. This medical document was created using an electronic medical record system with [employer] system. Although this document has been carefully reviewed, there may still be some phonetic and typographical errors. These areas are purely typographical due to imperfections of the software programs, and do not reflect any compromise in the patient's medical care. Condition at Discharge: Fair Final Diagnosis/Problems List Covid-19 Secondary diagnosis: -obesity -fibromyalgia -seizure disorder -primary hypertension -diabetes mellitus Discharge Disposition: Home Discharge Instruct/Medications Diet: Consistent carbohydrate Activity: No Restrictions, As Tolerated Follow Up/Referral: PCP in 1-2 weeks Medications: Zinc 220mg po daily Vitamin c 1000mg po daily Decadron 4mg po daily x 5 days Vitamin D 2000 uniits daily Metformin 500mg po BID Scheduled Ascorbic Acid (Vitamin C Tablet), 2 TAB PO DAILY Cholecalciferol (Vitamin D3), 1 TAB PO DAILY Dexamethasone (Decadron), 1 TAB PO DAILY Enalapril Maleate (Enalapril Maleate), 1 TAB PO BID, (Reported) Metformin Hydrochloride (Metformin Hcl), 1 TAB PO BID Metoprolol Succinate (Metoprolol Succinate Er), 1 TAB PO BID, (Reported) Pregabalin (Pregabalin), 1 CAP PO TID, (Reported) Zinc Sulfate (Zinc), 220 MG PO DAILY Miscellaneous Medications Magnesium Oxide (Mag-Ox), 1 TAB PO, (Reported) 36 Discharge Statement: "Patient was advised to return to the ER or call 911 if any headaches, dizziness, shortness of breath, chest pain, abdominal pain, bleeding, fevers, or worsening of medical condition. Patient was counseled about treatment plan, medications, possible side effects, patientverbalized understanding. All questions were answered to the best of my ability. This discharge took greater then 30 minutes in planning, reviewing documentation, counseling the patient, and discussing with other team members." ASSESSMENT ASSESSMENT Assessment Covid-19 Date of Service: Apr 25, 2025 Billing Provider: MAYTE METZGER NP Common Visit Codes: [id number] CARE 30-74 MIN MAYTE METZGER NP Apr 25, 2025 14:14
== END 2025-04-25 16:32 | disposition home or self-care (01) | DRG 137 ==
LOC: EDBD 21:39 → ER 21:39 → OVERFLOW 04-24 04:21 → ER 04-24 04:28 → OVERFLOW 04-24 04:28 → CENTRAL 04-24 14:23
PROVIDERS: ADMIT Nurse Practitioner Acute Care; ATTEND Nurse Practitioner Acute Care
DX: U07.1 COVID-19 (principal); E11.65 Type 2 diabetes mellitus with hyperglycemia; E66.9 Obesity, unspecified; G40.909 Epilepsy, unspecified, not intractable, without status epilepticus; I10 Essential (primary) hypertension; Z68.33 Body mass index [BMI] 33.0-33.9, adult; M79.7 Fibromyalgia; K21.9 Gastro-esophageal reflux disease without esophagitis; Z79.84 Long term (current) use of oral hypoglycemic drugs
CPT/HCPCS: 36415; 71045; 80053; 80307; 80320; 81001; 82728; 82962; 83036; 83605; 83735; 84443; 84484; 85025; 85379; 86141; 87040; 87086; 87426; 87804; 93005; 96372; 96374; G0378; J1815; J2405